=== PATIENT | female | born 1985 | race Caucasian/White ===

== ENCOUNTER 2021-04-21 09:38 | Emergency (ER) | payer OTHER ==
[2021-04-21] MEDS ORDERED: CYCLOBENZAPRINE10 MG PO (10:38)
[2021-04-21] MEDS ORDERED: NAPROXEN500 MG PO (10:38)
== END 2021-04-21 11:16 | disposition home or self-care (01) ==
LOC: FER 09:38
DX: M43.6 Torticollis (principal); F17.210 Nicotine dependence, cigarettes, uncomplicated; Z88.8 Allergy status to other drugs, medicaments and biological substances
CPT/HCPCS: 72050

== ENCOUNTER 2021-06-14 15:15 | Emergency (ER) | payer OTHER ==
[~2021-06-14 15:15] MED LIST: CYCLOBENZAPRINE10 MG PO; NAPROXEN500 MG PO
[2021-06-14 16:04] LABS: BILIRUBIN NEGATIVE (NEGATIVE); BLOOD NEGATIVE Ery/uL (NEGATIVE); CLARITY CLEAR (CLEAR); COLOR YELLOW (YELLOW); GLUCOSE (U) NORMAL (NORMAL); LEUKOCYTES NEGATIVE Leu/uL (NEGATIVE); NITRITE NEGATIVE (NEGATIVE); PROTEIN NEGATIVE (NEGATIVE); SPECIFIC GRAVITY 1.025 (1.001-1.030); pH 6.5 (5.0-9.0)
[2021-06-14 16:05] LABS: BASOPHIL 0.5 % (0-2); EOSINOPHIL 1.6 % (0-5); HGB 11.6 g/dl (12.5-16.0); MCH 27.3 pg (25.0-31.0); MCHC 32.2 g/dL (32.0-36.0); MCV 84.7 fL (78.0-100.0); MPV 10.8 fL (6.0-9.5); NEUTROPHIL 66.5 % (41-80); NRBC 0; PLT 204 K/uL (150-400); RBC 4.25 M/uL (4.20-5.40); RDW 17.2 % (11.5-14.0); WBC 11.3 K/uL (4.0-10.5)
[2021-06-14 16:13] LABS: BACTERIA 2+
[2021-06-14 16:29] LABS: IRON % SATURATION 13.4 %SAT (20-50)
[2021-06-14 16:30] LABS: ALBUMIN 3.7 g/dL (3.4-5.0); BILIRUBIN - TOTAL 0.3 mg/dL (0.2-1.0); CREATININE 0.61 mg/dL (0.51-0.95); GLOBULIN (CALCULATION) 3.5 g/dL; POTASSIUM 3.5 mmol/L (3.5-5.1); TOTAL PROTEIN 7.2 g/dL (6.4-8.2)
== END 2021-06-14 17:16 | disposition left against medical advice (07) ==
LOC: FER 15:15
PROVIDERS: Physician Assistant
DX: R20.2 Paresthesia of skin (principal); R11.0 Nausea; R42 Dizziness and giddiness; Z90.49 Acquired absence of other specified parts of digestive tract; Z88.8 Allergy status to other drugs, medicaments and biological substances
CPT/HCPCS: 36415; 80053; 81001; 83540; 83550; 84702; 85025; 99283; J2765; J7030

== ENCOUNTER 2022-01-08 19:40 | Inpatient (IN) | payer OTHER ==
[2022-01-08 20:45] LABS: BILIRUBIN NEGATIVE (NEGATIVE); BLOOD NEGATIVE Ery/uL (NEGATIVE); CLARITY CLEAR (CLEAR); COLOR YELLOW (YELLOW); GLUCOSE (U) NORMAL (NORMAL); LEUKOCYTES 1+ Leu/uL (NEGATIVE); NITRITE NEGATIVE (NEGATIVE); PROTEIN NEGATIVE (NEGATIVE); SPECIFIC GRAVITY 1.025 (1.001-1.030)
[2022-01-08 20:52] LABS: AMPHETAMINES NEGATIVE (NEGATIVE); BARBITURATES NEGATIVE (NEGATIVE); ECSTASY (MDMA) NEGATIVE (NEGATIVE); MARIJUANA (THC) NEGATIVE (NEGATIVE); METHADONE NEGATIVE (NEGATIVE); OPIATES NEGATIVE (NEGATIVE); OXYCODONE NEGATIVE (NEGATIVE)
[2022-01-08 21:19] LABS: BACTERIA TRACE
[2022-01-08 23:39] LABS: HCT 31.2 % (37.0-47.0); HGB 9.3 g/dl (12.5-16.0); MCH 24.3 pg (25.0-31.0); MCHC 29.8 g/dL (32.0-36.0); MCV 81.5 fL (78.0-100.0); MPV 11.6 fL (6.0-9.5); RBC 3.83 M/uL (4.20-5.40); RDW 25.9 % (11.5-14.0); WBC 13.7 K/uL (4.0-10.5)
[2022-01-10 08:31] LABS: BASOPHIL 0.3 % (0-2); EOSINOPHIL 0.9 % (0-5); HCT 27.2 % (37.0-47.0); HGB 8.3 g/dl (12.5-16.0); LYMPHOCYTE 21.3 % (15-48); MCHC 30.5 g/dL (32.0-36.0); MCV 81.9 fL (78.0-100.0); MONOCYTE 8.3 % (0-12); MPV 11.1 fL (6.0-9.5); NEUTROPHIL 68.6 % (41-80); NRBC 0.1; PLT 158 K/uL (150-400); RBC 3.32 M/uL (4.20-5.40); RDW 25.5 % (11.5-14.0); WBC 14.3 K/uL (4.0-10.5)
== END 2022-01-11 17:18 | disposition home or self-care (01) | DRG 806 ==
LOC: FOD 19:40 → FOB 19:40 → FOD 01-09 08:42 → FOB 01-09 08:43
PROVIDERS: ADMIT Specialist
PROC: 10E0XZZ Delivery of Products of Conception, External Approach (ICD-10-PCS; principal; 2022-01-09)
DX: O99.02 Anemia complicating childbirth (principal); D62 Acute posthemorrhagic anemia; Z37.0 Single live birth; Z3A.37 37 weeks gestation of pregnancy; O42.02 Full-term premature rupture of membranes, onset of labor within 24 hours of rupture; D50.9 Iron deficiency anemia, unspecified; O69.81X0 Labor and delivery complicated by cord around neck, without compression, not applicable or unspecified; O99.824 Streptococcus B carrier state complicating childbirth; Z28.310 Unvaccinated for COVID-19
CPT/HCPCS: 36415; 80305; 81001; 84112; 85025; 86900; 86901; J0595; J2540; J2916; J7120